=== PATIENT | female | born 2000 | race Caucasian/White ===

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

== ENCOUNTER → 2022-06-15 | Outpatient (CLI) | payer MEDICAID, OTHER ==
[2022-06-15 17:36] LABS: BASO % 0.2 % (0.0-1.0); EOS # 0.1 10^3/uL (0.0-0.5); EOS % 0.5 % (0.0-3.0); HEMATOCRIT 38.6 % (36.0-47.0); LYMPH # 2.7 10^3/uL (1.5-5.0); MEAN CORPUSCULAR HEMOGLOBIN 30.1 pg (27.0-33.0); MEAN CORPUSCULAR HGB CONC 33.7 g/dl (32.0-36.5); MEAN CORPUSCULAR VOLUME 89.4 fl (80.0-96.0); MONO # 0.7 10^3/uL (0.0-0.8); MONO % 6.1 % (2.0-8.0); NEUTROPHILS # 7.7 10^3/uL (1.5-8.5); NEUTROPHILS % 68.8 % (36.0-66.0); PLATELET COUNT, AUTOMATED 318 10^3/uL (150-450); RED BLOOD COUNT 4.32 10^6/uL (4.00-5.40); WHITE BLOOD COUNT 11.1 10^3/uL (4.0-10.0)
[2022-06-15 19:05] LABS: HIV 1&2 SCREEN CENTAUR NEGATIVE (NEGATIVE)
[2022-06-15 19:25] LABS: GC DNA AMPLIFICATION NEGATIVE (NEGATIVE)
== END ==
LOC: M PLALAB 14:57
PROVIDERS: ATTEND Specialist
DX: Z34.81 Encounter for supervision of other normal pregnancy, first trimester (principal)

== ENCOUNTER → 2022-07-02 | Outpatient (CLI) | payer OTHER | LOC: M PLALAB 11:51 | PROVIDERS: ATTEND Specialist | DX: Z34.82 Encounter for supervision of other normal pregnancy, second trimester (principal); Z3A.00 Weeks of gestation of pregnancy not specified ==

== ENCOUNTER → 2022-07-26 | Outpatient (REF) | payer MEDICAID, OTHER | LOC: M WUC 19:47 | PROVIDERS: ATTEND Physician Assistant | DX: R30.0 Dysuria (principal) ==

== ENCOUNTER → 2022-08-10 | Outpatient (CLI) | payer MEDICAID, OTHER | LOC: M WHC 14:59 | PROVIDERS: ATTEND Specialist | DX: Z36.2 Encounter for other antenatal screening follow-up (principal); Z3A.20 20 weeks gestation of pregnancy ==

== ENCOUNTER → 2022-08-25 | Outpatient (CLI) | payer OTHER | LOC: M WHC 09:04 | PROVIDERS: ATTEND Specialist | DX: Z34.82 Encounter for supervision of other normal pregnancy, second trimester (principal) ==

== ENCOUNTER → 2022-09-08 | Outpatient (CLI) | payer OTHER | LOC: M RAD 06:43 | PROVIDERS: ATTEND Specialist | DX: Z36.2 Encounter for other antenatal screening follow-up (principal); Z3A.24 24 weeks gestation of pregnancy ==

== ENCOUNTER → 2022-10-01 | Outpatient (CLI) | payer OTHER, MEDICAID ==
[2022-10-01 13:28] LABS: HEMATOCRIT 35.1 % (36.0-47.0); HEMOGLOBIN 11.6 g/dl (12.0-15.5); MEAN CORPUSCULAR VOLUME 90.7 fl (80.0-96.0); PLATELET COUNT, AUTOMATED 313 10^3/uL (150-450); RED BLOOD COUNT 3.87 10^6/uL (4.00-5.40); WHITE BLOOD COUNT 10.7 10^3/uL (4.0-10.0)
[2022-10-01 15:07] LABS: GC DNA AMPLIFICATION NEGATIVE (NEGATIVE)
== END ==
LOC: M PLALAB 09:57
PROVIDERS: ATTEND Specialist
DX: Z34.02 Encounter for supervision of normal first pregnancy, second trimester (principal); Z3A.00 Weeks of gestation of pregnancy not specified

== ENCOUNTER → 2022-11-30 | Outpatient (CLI) | payer OTHER, MEDICAID ==
[~2022-11-30] MED LIST: FAMO20TA PO; GNP28TAB2 PO; TUMS500C PO
[2022-11-30 10:53] LABS: HEMOGLOBIN 11.3 g/dl (12.0-15.5); MEAN CORPUSCULAR HEMOGLOBIN 28.4 pg (27.0-33.0); MEAN CORPUSCULAR HGB CONC 32.3 g/dl (32.0-36.5); MEAN CORPUSCULAR VOLUME 87.9 fl (80.0-96.0); PLATELET COUNT, AUTOMATED 300 10^3/uL (150-450); RED BLOOD COUNT 3.98 10^6/uL (4.00-5.40); WHITE BLOOD COUNT 12.2 10^3/uL (4.0-10.0)
[2022-11-30 11:04] LABS: TOTAL PROTEIN,RANDOM URINE 18.8 MG/DL (0.0-14.0)
[2022-11-30 11:08] LABS: CREATININE,RANDOM URINE 160.6 MG/DL
[2022-11-30 12:39] LABS: ALBUMIN 2.5 G/DL (3.2-5.2); ALKALINE PHOSPHATASE 97 U/L (46-116); ALT/SGPT 18 U/L (7.0-40); AST/SGOT 18 U/L (<34); BILIRUBIN,TOTAL 0.3 MG/DL (0.3-1.2); BLOOD UREA NITROGEN 9 MG/DL (9-23); CALCIUM LEVEL 9.1 MG/DL (8.5-10.1); CARBON DIOXIDE LEVEL 24 MMOL/L (20-31); CHLORIDE LEVEL 105 MMOL/L (98-107); CREATININE FOR GFR 0.59 MG/DL (0.55-1.30); GLOMERULAR FILTRATION RATE > 60.0 (>60); GLUCOSE, FASTING 95 MG/DL (60-100); POTASSIUM SERUM 3.9 MMOL/L (3.5-5.1); SODIUM LEVEL 138 MMOL/L (136-145); TOTAL PROTEIN 5.9 G/DL (5.7-8.2)
== END ==
LOC: M PLALAB 09:22
PROVIDERS: ATTEND Obstetrics & Gynecology
DX: O16.3 Unspecified maternal hypertension, third trimester (principal); Z3A.00 Weeks of gestation of pregnancy not specified

== ENCOUNTER → 2022-11-30 | Outpatient (REF) | payer MEDICAID | LOC: M PLALAB 09:17 | PROVIDERS: ATTEND Obstetrics & Gynecology | DX: Z34.83 Encounter for supervision of other normal pregnancy, third trimester (principal) ==

== ENCOUNTER 2022-12-01 16:27 | Outpatient (CLI) | payer OTHER, MEDICAID ==
[~2022-12-01] VITALS: Ht 167.6 cm; Wt 123.7 kg
[2022-12-01 16:41] VITALS: BP 147/86
[2022-12-01] MEDS ORDERED: GNP28TAB2 PO (16:50)
[2022-12-01] MEDS ORDERED: TUMS500C PO (16:50)
[2022-12-01] MEDS ORDERED: FAMO20TA PO (16:50)
[2022-12-01 16:57] VITALS: BP 140/80
[2022-12-01] MEDS ORDERED: HOME MED LIST COMPLETE! XX SCH (17:00)
[2022-12-01 17:12] VITALS: BP 141/79
[2022-12-01] MEDS ORDERED: BETAMETHASONE SOLUSPAN 6MG/ML 5ML VIAL IM SCH (18:00)
== END 2022-12-01 17:46 | disposition home or self-care (01) ==
LOC: M LDO 16:27
PROVIDERS: ATTEND Advanced Practice Midwife
DX: O13.3 Gestational [pregnancy-induced] hypertension without significant proteinuria, third trimester (principal); O99.213 Obesity complicating pregnancy, third trimester; E66.9 Obesity, unspecified
CPT/HCPCS: 59025; 96372; G0463; J0702

== ENCOUNTER 2022-12-02 17:00 | Outpatient (CLI) | payer OTHER, MEDICAID ==
[~2022-12-02] VITALS: Ht 167.6 cm; Wt 123.1 kg
[2022-12-02] MEDS ORDERED: BETAMETHASONE SOLUSPAN 6MG/ML 5ML VIAL IM ONE (17:25)
[2022-12-02 17:35] VITALS: BP 142/91
[2022-12-02 17:45] VITALS: BP 139/84
[2022-12-02] MEDS ORDERED: HOME MED LIST COMPLETE! XX SCH (17:50)
[2022-12-02 17:55] VITALS: BP 126/84
[2022-12-02 18:05] VITALS: BP 122/85
[2022-12-02 18:21] VITALS: BP 130/86
== END 2022-12-02 18:39 | disposition home or self-care (01) ==
LOC: M LDO 17:00
PROVIDERS: ATTEND Obstetrics & Gynecology
DX: O13.3 Gestational [pregnancy-induced] hypertension without significant proteinuria, third trimester (principal); Z3A.36 36 weeks gestation of pregnancy
CPT/HCPCS: 59025; 96372; G0463; J0702

== ENCOUNTER 2022-12-03 16:58 | Outpatient (CLI) | payer OTHER, MEDICAID ==
[~2022-12-03] VITALS: Ht 167.6 cm; Wt 123.6 kg
[2022-12-03 17:15] VITALS: BP 127/82
[2022-12-03] MEDS ORDERED: HOME MED LIST COMPLETE! XX SCH (17:25)
== END 2022-12-03 18:00 | disposition home or self-care (01) ==
LOC: M LDO 16:58
PROVIDERS: ATTEND Advanced Practice Midwife
DX: O13.3 Gestational [pregnancy-induced] hypertension without significant proteinuria, third trimester (principal); Z3A.36 36 weeks gestation of pregnancy
CPT/HCPCS: 59025; G0463

== ENCOUNTER 2022-12-07 07:47 | Inpatient (IN) | payer OTHER, MEDICAID ==
[2022-12-07] VITALS (19 sets, daily range): BP systolic 123–185; BP diastolic 67–111
[~2022-12-07] VITALS: Ht 167.6 cm; Wt 122.7 kg
[2022-12-07] MEDS ORDERED: HOME MED LIST COMPLETE! XX SCH (08:10)
[2022-12-07] MEDS ORDERED: TRANEXAMIC ACID INJection 1,000 MG in NS 100 ML IV PRN (08:45)
[2022-12-07] MEDS ORDERED: CARBOPROST TROMETHAMINE 250 MCG/ML AMP IM PRN (08:45)
[2022-12-07 09:07] LABS: HEMATOCRIT 37.1 % (36.0-47.0); HEMOGLOBIN 11.9 g/dl (12.0-15.5); MEAN CORPUSCULAR HGB CONC 32.1 g/dl (32.0-36.5); MEAN CORPUSCULAR VOLUME 87.3 fl (80.0-96.0); PLATELET COUNT, AUTOMATED 344 10^3/uL (150-450); RED BLOOD COUNT 4.25 10^6/uL (4.00-5.40); WHITE BLOOD COUNT 15.8 10^3/uL (4.0-10.0)
[2022-12-07] MEDS: miSOPROStol 50MCG 1/2 TABLET PO SCH ×4 (09:17→21:45)
[2022-12-07 10:18] LABS: LDH LACTATE DEHYDROGENASE 196 U/L (120-246)
[2022-12-07 10:19] LABS: ALT/SGPT 15 U/L (7.0-40); AST/SGOT 18 U/L (<34); BILIRUBIN,TOTAL 0.3 MG/DL (0.3-1.2); CREATININE FOR GFR 0.51 MG/DL (0.55-1.30); GLOMERULAR FILTRATION RATE > 60.0 (>60)
[2022-12-07 10:42] LABS: URIC ACID 4.4 MG/DL (3.1-7.8)
[2022-12-07 11:16] LABS: TOTAL PROTEIN,RANDOM URINE 13.3 MG/DL (0.0-14.0)
[2022-12-07 11:20] LABS: CREATININE,RANDOM URINE 144.7 MG/DL
[2022-12-08] VITALS (62 sets, daily range): BP systolic 116–180; BP diastolic 57–101
[2022-12-08] MEDS ORDERED: CALCIUM CARBONATE 500 MG CHEW U/D PO ONE (01:00)
[2022-12-08] MEDS: miSOPROStol 50MCG 1/2 TABLET PO SCH (01:55)
[2022-12-08] MEDS ORDERED: OXYTOCIN DRIP 30 UNITS in IV 1 EA IV SCH ×5 (09:05→22:50)
[2022-12-08] MEDS: LR 1,000 ML IV SCH ×2 (09:32→14:13)
[2022-12-08] MEDS ORDERED: PROMETHAZINE 25MG/ML 1ML VIAL IM ONE (14:20)
[2022-12-08] MEDS ORDERED: BUTORPHANOL 2 MG/ML 1ML VIAL IV ONE (14:20)
[2022-12-08] MEDS ORDERED: PROMETHAZINE 25MG/ML 1ML VIAL IV ONE (15:00)
[2022-12-08] MEDS ORDERED: diphenhydrAMINE 50MG/ML VIAL IV PRN (16:55)
[2022-12-08] MEDS ORDERED: ONDANSETRON 4MG 2ML VIAL IV PRN (16:55)
[2022-12-08] MEDS ORDERED: EPIDURAL/PCA KEYS XX PRN (16:55)
[2022-12-08] MEDS ORDERED: NALOXONE INJ 0.4MG/1ML VIAL IV PRN (16:55)
[2022-12-08] MEDS ORDERED: LR 500 ML IV PRN (16:55)
[2022-12-08] MEDS ORDERED: FENTANYL/ROPIVACAINE/NACL BAG 100 ML EPIDURAL SCH (16:55)
[2022-12-08] MEDS: ePHEDrine SULFATE 25 MG/5 ML(5MG/ML) SYRINGE IVP PRN ×3 (17:53→18:03)
[2022-12-08] MEDS ORDERED: ACETAMINOPHEN 500 MG TAB PO PRN (22:50)
[2022-12-08] MEDS ORDERED: RHOGAM 300MCG (1500IU) INJ IM SCH (22:50)
[2022-12-08] MEDS ORDERED: IBUPROFEN 800 MG TAB PO PRN (22:50)
[2022-12-08] MEDS ORDERED: DIBUCAINE 1% OINTMENT 30GM TOP PRN (22:50)
[2022-12-08] MEDS ORDERED: DOCUSATE SODIUM 100MG CAPSULE PO PRN (22:50)
[2022-12-09 00:45] VITALS: BP 139/84
[2022-12-09 06:00] VITALS: BP 140/85
[2022-12-09] MEDS: PRENATAL VITAMINS CHEWABLE TABLET PO SCH (07:33)
[2022-12-09] MEDS: IBUPROFEN 600MG TAB PO PRN ×2 (07:34→18:27)
[2022-12-09] MEDS ORDERED: IBUP-1022 PO (09:59)
[2022-12-09] MEDS ORDERED: COLA100C5 PO (09:59)
[2022-12-09] MEDS ORDERED: ACET-683 PO (09:59)
[2022-12-09] MEDS: ACETAMINOPHEN TAB 650MG DOSE (2X325MG) PO PRN (13:12)
[2022-12-09 18:00] VITALS: BP 137/90
[2022-12-10] MEDS: ACETAMINOPHEN TAB 650MG DOSE (2X325MG) PO PRN (05:57)
[2022-12-10 06:07] VITALS: BP 115/73
[2022-12-10] MEDS: PRENATAL VITAMINS CHEWABLE TABLET PO SCH (08:49)
[2022-12-10] MEDS ORDERED: MEASLES,MUMPS,RUBELLA VACCINE INJ (MMR-II) SC.IMMUN ONE (09:00)
== END 2022-12-10 13:25 | disposition home or self-care (01) | DRG 560 ==
LOC: M LDI 07:47 → M OBS 12-09 00:35
PROVIDERS: ADMIT Obstetrics & Gynecology; ATTEND Advanced Practice Midwife
PROC: 3E0P7GC Introduction of Other Therapeutic Substance into Female Reproductive, Via Natural or Artificial Opening (ICD-10-PCS; 2022-12-07)
PROC: 10E0XZZ Delivery of Products of Conception, External Approach (ICD-10-PCS; principal; 2022-12-08)
PROC: 10907ZC Drainage of Amniotic Fluid, Therapeutic from Products of Conception, Via Natural or Artificial Opening (ICD-10-PCS; 2022-12-08)
DX: O13.4 Gestational [pregnancy-induced] hypertension without significant proteinuria, complicating childbirth (principal); Z37.0 Single live birth; Z3A.37 37 weeks gestation of pregnancy; Z88.0 Allergy status to penicillin